=== PATIENT | male | born 1935 | race Caucasian/White ===

== ENCOUNTER → 2019-05-29 | Outpatient (CLI) | payer OTHER ==
[~2019-05-29] MED LIST: ALLOPURINOL100 MG; AMLODIPINE BESYL5 MG PO; ATENOLOL50 MG; DIGOXIN0.25 MG; FELODIPINE; IRON65 M1; LISINOPRIL20 MG; LOSARTAN POTAS100 M1; SIMVASTATIN10 MG; SIMVASTATIN40 MG PO; WARFARIN; WARFARIN SODIUM5 MG PO; WARFARIN2 MG PO
[2019-05-29 11:25] LABS: BASO # 0.1 10*3/uL (0.0-0.1); BASO % 0.9 % (0.0-1.0); EOS # 0.2 10*3/uL (0.0-0.4); HEMATOCRIT 44.1 % (42.0-52.0); HEMOGLOBIN 13.2 g/dl (14.0-18.0); LYMPH # 0.7 10*3/uL (1.3-4.4); LYMPH % 8.6 % (27.0-41.0); MEAN CELL VOLUME 81.5 fl (80.0-94.0); MEAN CORPUSCULAR HGB 24.4 pg (27.0-31.0); MEAN CORPUSCULAR HGB CONC 29.9 g/dl (33.0-37.0); MEAN PLATELET VOLUME 9.6 fl (9.6-12.3); MONO # 0.7 10*3/uL (0.1-1.0); MONO % 8.4 % (3.0-9.0); NEUT # 6.2 10*3/uL (2.3-7.9); NEUT % 78.5 % (47.0-73.0); PLATELET COUNT AUTOMATED 295 10*3/uL (130-400); RED BLOOD COUNT 5.41 10*6/uL (4.50-5.90); RED CELL DISTRI WIDTH 16.3 % (0-14.5); WHITE BLOOD COUNT 7.9 10*3/uL (4.8-10.8)
== END | disposition home or self-care (01) ==
LOC: LAB 09:48 → NM 10:00
PROVIDERS: Orthopaedic Surgery
DX: M25.552 Pain in left hip (principal); M65.852 Other synovitis and tenosynovitis, left thigh; Z96.642 Presence of left artificial hip joint; Z96.643 Presence of artificial hip joint, bilateral

== ENCOUNTER 2019-06-22 14:22 | Emergency (ER) | payer OTHER ==
[~2019-06-22] VITALS: Ht 177.8 cm; Wt 93.0 kg
[2019-06-22 14:24] VITALS: BP 164/74
[2019-06-22 14:39] LABS: BASO # 0.1 10*3/uL (0.0-0.1); BASO % 0.7 % (0.0-1.0); EOS # 0.2 10*3/uL (0.0-0.4); EOS % 2.1 % (1.0-4.0); HEMATOCRIT 37.5 % (42.0-52.0); HEMOGLOBIN 11.4 g/dl (14.0-18.0); LYMPH # 0.9 10*3/uL (1.3-4.4); LYMPH % 10.8 % (27.0-41.0); MEAN CELL VOLUME 79.3 fl (80.0-94.0); MEAN CORPUSCULAR HGB 24.1 pg (27.0-31.0); MEAN CORPUSCULAR HGB CONC 30.4 g/dl (33.0-37.0); MEAN PLATELET VOLUME 8.9 fl (9.6-12.3); MONO # 1.1 10*3/uL (0.1-1.0); MONO % 13.1 % (3.0-9.0); NEUT # 6.3 10*3/uL (2.3-7.9); NEUT % 72.5 % (47.0-73.0); PLATELET COUNT AUTOMATED 357 10*3/uL (130-400); RED BLOOD COUNT 4.73 10*6/uL (4.50-5.90); RED CELL DISTRI WIDTH 15.9 % (0-14.5); WHITE BLOOD COUNT 8.6 10*3/uL (4.8-10.8)
[2019-06-22 14:59] LABS: ALBUMIN 2.8 gm/dl (3.1-4.5); ALKALINE PHOSPHATASE 192 U/L (45-117); BUN 18 mg/dl (7-24); CHLORIDE 107 mmol/L (98-107); POTASSIUM 3.5 mmol/L (3.5-5.1); SGOT/AST 24 IU/L (3-35); SGPT/ALT 21 U/L (12-78); SODIUM 141 mmol/L (136-145); TOTAL PROTEIN 6.7 gm/dL (6.4-8.2)
[2019-06-22 15:04] LABS: INTERNATIONAL NORM RATIO 9.3 (2.0-3.5)
== END 2019-06-22 15:40 | disposition home or self-care (01) ==
LOC: ED 14:22
PROVIDERS: Nurse Practitioner Family
DX: R79.1 Abnormal coagulation profile (principal); J06.9 Acute upper respiratory infection, unspecified; H11.32 Conjunctival hemorrhage, left eye; I48.91 Unspecified atrial fibrillation; I25.10 Atherosclerotic heart disease of native coronary artery without angina pectoris; I10 Essential (primary) hypertension; Z95.1 Presence of aortocoronary bypass graft; Z79.899 Other long term (current) drug therapy; Z79.01 Long term (current) use of anticoagulants

== ENCOUNTER → 2019-08-03 | Outpatient (CLI) | payer OTHER ==
[~2019-08-03] MED LIST changes: +ATORVASTATIN CA40 M1 PO; +COREG12.5 M1 PO; +FUROSEMIDE40 MG PO; +POTASSIUM CHLO20 ME3 PO; +PROAIR HFA8.5 GM INH
[2019-08-03 14:19] LABS: ALBUMIN 3.4 gm/dl (3.1-4.5); ALKALINE PHOSPHATASE 214 U/L (45-117); BUN 25 mg/dl (7-24); CHLORIDE 111 mmol/L (98-107); CREATININE 0.99 mg/dL (0.70-1.30); POTASSIUM 4.2 mmol/L (3.5-5.1); SGOT/AST 27 IU/L (3-35); SGPT/ALT 21 U/L (12-78); SODIUM 143 mmol/L (136-145); TOTAL PROTEIN 7.3 gm/dL (6.4-8.2)
[2019-08-03 14:20] LABS: HEMATOCRIT 37.2 % (42.0-52.0); HEMOGLOBIN 11.2 g/dl (14.0-18.0); MEAN CELL VOLUME 80.9 fl (80.0-94.0); MEAN CORPUSCULAR HGB 24.3 pg (27.0-31.0); MEAN CORPUSCULAR HGB CONC 30.1 g/dl (33.0-37.0); MEAN PLATELET VOLUME 10.6 fl (9.6-12.3); RED BLOOD COUNT 4.6 10*6/uL (4.50-5.90); RED CELL DISTRI WIDTH 16.4 % (0-14.5); WHITE BLOOD COUNT 7.1 10*3/uL (4.8-10.8)
== END | disposition home or self-care (01) ==
LOC: LAB 13:02
PROVIDERS: Family Medicine
DX: I51.7 Cardiomegaly (principal); I48.91 Unspecified atrial fibrillation; Z95.1 Presence of aortocoronary bypass graft

== ENCOUNTER 2019-08-04 10:40 | Inpatient (IN) | payer OTHER ==
[2019-08-04] VITALS (8 sets, daily range): BP systolic 121–152; BP diastolic 56–87
[~2019-08-04] VITALS: Ht 177.8 cm; Wt 92.2 kg
[~2019-08-04 10:40] MED LIST changes: -ATORVASTATIN CA40 M1 PO; -COREG12.5 M1 PO; -FUROSEMIDE40 MG PO; -POTASSIUM CHLO20 ME3 PO; -PROAIR HFA8.5 GM INH
[2019-08-04 10:57] LABS: BASO # 0.1 10*3/uL (0.0-0.1); BASO % 1.5 % (0.0-1.0); EOS # 0.2 10*3/uL (0.0-0.4); EOS % 3.3 % (1.0-4.0); HEMATOCRIT 38.8 % (42.0-52.0); HEMOGLOBIN 11.6 g/dl (14.0-18.0); LYMPH # 0.7 10*3/uL (1.3-4.4); LYMPH % 10.1 % (27.0-41.0); MEAN CELL VOLUME 80.2 fl (80.0-94.0); MEAN CORPUSCULAR HGB CONC 29.9 g/dl (33.0-37.0); MEAN PLATELET VOLUME 9.6 fl (9.6-12.3); MONO # 0.6 10*3/uL (0.1-1.0); MONO % 7.9 % (3.0-9.0); NEUT # 5.6 10*3/uL (2.3-7.9); NEUT % 76.9 % (47.0-73.0); PLATELET COUNT AUTOMATED 385 10*3/uL (130-400); RED BLOOD COUNT 4.84 10*6/uL (4.50-5.90); RED CELL DISTRI WIDTH 16.1 % (0-14.5); WHITE BLOOD COUNT 7.3 10*3/uL (4.8-10.8)
[2019-08-04] MEDS ORDERED: ATORVASTATIN CA40 M1 PO (10:57)
[2019-08-04] MEDS ORDERED: FUROSEMIDE40 MG PO (10:57)
[2019-08-04 11:10] LABS: ACT PARTIAL THROMBO TIME 47.4 SECONDS (20.0-32.1)
[2019-08-04 11:14] LABS: ALBUMIN 3.4 gm/dl (3.1-4.5); ALKALINE PHOSPHATASE 216 U/L (45-117); BUN 21 mg/dl (7-24); CHLORIDE 111 mmol/L (98-107); POTASSIUM 3.9 mmol/L (3.5-5.1); SGOT/AST 29 IU/L (3-35); SGPT/ALT 23 U/L (12-78); SODIUM 142 mmol/L (136-145); TOTAL PROTEIN 7.5 gm/dL (6.4-8.2)
[2019-08-04 11:17] LABS: TROPONIN I 0.049 ng/ml (<0.045)
--- NOTE | 2019-08-04 11:17 | NUR ---
NOTIFED BY LAB PT HAS A TROPONIN OF 0.049, DR LIANG NOTIFED.
--- NOTE | 2019-08-04 13:50 | NUR ---
A 83, admitted to , under the services of Dr. ANASTACIO BENDER,CARLIN Lassiter with a diagnosis of CHF. Chief complaint is SOB WORSENING SINCE YESTERDAY. Patient arrived via wheel chair from ER. Monitor applied. Initial assessment completed. Vital signs taken and recorded. DR. ANASTACIO BENDER,CARLIN Lassiter notified of admission to the unit. Orders received. See assessment for past medical history, medications and allergies. Patient and/or family oriented to unit. [facility] visitation policy reviewed. Clothing/patient valuable form completed. LUCIANO HUNTER
--- NOTE | 2019-08-04 14:06 | NUR ---
ATTEMPTED TO CALL DR CHAVES FOR SECOND TROPONIN RESULT. WILL CALL BACK LATER/AWAITING CALL BACK. CONTINUE TO MONITOR THE PT.
--- NOTE | 2019-08-04 16:19 | NUR ---
MESSAGE LEFT FOR DR DOUGLAS ANSWERING SERVICE REGARDING NEW CONSULT.
--- NOTE | 2019-08-04 16:33 | NUR ---
PT RESTING IN BED AT THIS TIME. VOICES NO CONCERNS. NO S/S OF DISTRESS NOTED. RESPS EASY AND NON LABORED. CALL LIGHT WITHIN REACH
--- NOTE | 2019-08-04 16:59 | NUR ---
DR CHAVES INFORMED OF PATIENTS TROPONIN 0.047, NO NEW ORDERS AT THIS TIME.
[2019-08-04] MEDS ORDERED: PROAIR HFA8.5 GM INH (22:29)
--- NOTE | 2019-08-04 22:40 | NUR ---
PT. STARTING TO HAVE A FAINT WHEEZE AND COUGH. PT. TAKES ALBUTEROL PUFFS AT HOME PRN FOR WHEEZING. SEGUN ORDERED.
[2019-08-05] VITALS: BP 128/69
--- NOTE | 2019-08-05 01:58 | NUR ---
24 HR chart check completed.
--- NOTE | 2019-08-05 03:42 | NUR ---
Patient sleeping. Respirations relaxed and easy. Siderails up . [place] on.Call light within reach. DEVON MONZON
[2019-08-05 06:47] LABS: BUN 21 mg/dl (7-24); CHLORIDE 105 mmol/L (98-107); CREATININE 0.82 mg/dL (0.70-1.30); POTASSIUM 3.4 mmol/L (3.5-5.1); SODIUM 141 mmol/L (136-145)
[2019-08-05 06:48] LABS: INTERNATIONAL NORM RATIO 2.9 (2.0-3.5)
[2019-08-05 12:00] VITALS: BP 126/66
[2019-08-05 16:00] VITALS: BP 114/55
[2019-08-05 20:00] VITALS: BP 126/57
[2019-08-06] VITALS: BP 157/77
--- NOTE | 2019-08-06 07:28 | NUR ---
PHYSICAL THERAPY Screen received please consult Physical Therapy if pt has a decline in functional status from baseline, thank you. Kailey Boykin PT
[2019-08-06 07:40] LABS: BUN 19 mg/dl (7-24); CHLORIDE 104 mmol/L (98-107); CREATININE 0.92 mg/dL (0.70-1.30); SODIUM 139 mmol/L (136-145)
--- NOTE | 2019-08-06 07:50 | NUR ---
Nursing screen received and chart reviewed. Patient admitted with CHF and cardiac history. When medically stable, if patient should have a decline in ADL status from baseline, then refer to Occupational Therapy as appropriate. Thank you. Mindy Chaudhry OTr/l
[2019-08-06 07:58] LABS: INTERNATIONAL NORM RATIO 2.6 (2.0-3.5)
[2019-08-06 08:00] VITALS: BP 128/60
--- NOTE | 2019-08-06 11:27 | NUR ---
Fluid Dynamicist in to talk to patient. Patient states lives at HOME with . There are FEW steps in the home. Physician: AANSTACIO Pharmacy: [facility] Home health services: NONE Patient's level of ADLs: INDEPENDENT Patient has working utilities: YES DME: [facility] IF NEEDED Follow-up physician's appointment after d/c: WILL BE MADE BY HOSPITALIST NURSE DIRECTOR ON DISCHARGE Does patient want to access PORTAL?: NO Discharge plan PT LIVES AT HOME WITH HIS AND IS INDEPENDENT IN HIS CARE. DENIES HE WILL HAVE NEEDS ON DISCHARGE WHEN MEDICALLY STABLE. WILL CONTINUE TO FOLLOW. STATES WILL TAKE HIM HOME ON DC.. KWAME ALVAREZ
--- NOTE | 2019-08-06 11:33 | NUR ---
PT. UNAVAILABLE FOR DA, OFF UNIT FOR STRESS TEST.
--- NOTE | 2019-08-06 12:20 | NUR ---
INFORMED CONSENT OBTAINED FOR LEXISCAN NUCLEAR STRESS TEST WITH DR. CHAVES. RESTING EKG ATRIAL FIB WITH A RESTING HR OF 92 WITH BP OF 128/68. [address] DOWNSLOPING IN LEADS II,III,AVF AND V5-V6. LUNGS CLEAR WITH SPO2 OF 96% ON ROOM AIR. PT COMPLETED A 1:00 LEXISCAN PROTOCOL RECEIVING LEXISCAN 0.4 MG IV OVER 10 SECONDS. HAD NO CHEST PAIN OR ANY EKG CHANGES. HAS A RARE PVC. HAD A PEAK HR OF 93 WITH BP OF 112/54. LAST RECOVERY HR OF 98 WITH BP OF 114/50. AWAITING SCANNING IN STABLE CONDITION.
[2019-08-06 16:00] VITALS: BP 125/68
--- NOTE | 2019-08-06 18:48 | NUR ---
NEW IV STARTED IN RIGHT UPPER ARM 22 ROMAN ON FIRST ATTEMPT, PT TOLERATED WELL
--- NOTE | 2019-08-06 19:59 | NUR ---
ATTEMPTED TO CALL DR CHAVES REGARDING PATIENT REQUESTING PAIN MEDICATION. NO ANSWER
[2019-08-06 20:00] VITALS: BP 122/47
--- NOTE | 2019-08-06 20:38 | NUR ---
MEDICATED WITH PRN TYLENOL FOR C/O BILATERAL SHOULDER PAIN RATED 7/10 ON A 0/10 PAIN SCALE. WILL MONITOR
[2019-08-07] VITALS: BP 123/72
--- NOTE | 2019-08-07 03:37 | NUR ---
24 HR chart check completed.
--- NOTE | 2019-08-07 04:15 | NUR ---
PATIENT RESTING IN BED WITH NO COMPLAINTS. BED IN LOWEST POSITION, CALL LIGHT IN REACH
[2019-08-07 07:52] LABS: BUN 18 mg/dl (7-24); CHLORIDE 102 mmol/L (98-107); CREATININE 0.76 mg/dL (0.70-1.30); INTERNATIONAL NORM RATIO 2.7 (2.0-3.5); POTASSIUM 3.3 mmol/L (3.5-5.1); SODIUM 138 mmol/L (136-145)
[2019-08-07 08:00] VITALS: BP 118/56
--- NOTE | 2019-08-07 09:12 | NUR ---
PATIENT MEDICATED WITH TYLENOL FOR COMPLAINTS OF BACK PAIN AT THIS TIME 11/19. WILL MONITOR FOR EFFECTIVENESS.
[2019-08-07] MEDS ORDERED: FUROSEMIDE40 MG PO (09:43)
[2019-08-07] MEDS ORDERED: COREG12.5 M1 PO (09:43)
[2019-08-07] MEDS ORDERED: POTASSIUM CHLO20 ME3 PO (09:52)
--- NOTE | 2019-08-07 10:30 | NUR ---
PER PATIENT, PRN MEDICATION HAS BEEN EFFECTIVE.
--- NOTE | 2019-08-07 10:30 | NUR ---
Occupational Therapy evaluation completed on 4 with full eval to follow. Precautions include fall risk;unsteady with cane instanding,patient is able to perform self care w/ supervision and set up and will provide as prior to admission.Patient declines home health therapy and "will consider" outpatient PT upon d/c. OT recommended outpatient PT to outsole caser who contacted for outpatient script. Discharge to home w/ assist. Recommended patient use ww v.s. cane in the home. Patient only agreeable to PT at this time. Thank you. Mindy Chaudhry OTr/L
--- NOTE | 2019-08-07 11:20 | NUR ---
Discharge instructions reviewed with patient/family. Patient receptive and verbalizes understanding. Follow-up care arranged. Written instructions given to patient/family. HEPLOCK DISCONTINUED. MONONITROTOLUENE OPERATOR REMOVED. PATIENT AMBULATORY OFF FLOOR WITH MONISHA JORDAN . DANA GOMEZ
--- NOTE | 2019-08-07 11:37 | NUR ---
PHYSICAL THERAPY Thee completed moderate complexity level [id number] Would benefit from [facility] rehab, pt and state they will go home. Discussed Home Health vs Out-patient therapy. Pt/ state they will "consider out-patient therapy" PT to work on transfers,balance,amb with AD, stairs and safety. Kailey Boykin PT
--- NOTE | 2019-08-07 11:53 | NUR ---
SCRIP FOR OUT PT PHYSICAL THERAPY OBTAINED FROM DR CHAVES AND GIVEN TO PT PRIOR TO DISCHARGE. PT STATES HE IS NOT SURE WHERE HE WILL GO FOR PT IS GOING TO CHECK TO SEE WHO HIS INSURANCE COVERS AND WILL SET IT UP.
== END 2019-08-07 11:20 | disposition home or self-care (01) | DRG 190 ==
LOC: ED 10:40 → 4E 13:19 → EDHOLD 13:19 → 4E 13:34
PROVIDERS: Emergency Medicine; ADMIT Internal Medicine
PROC: 3E073KZ Introduction of Other Diagnostic Substance into Coronary Artery, Percutaneous Approach (ICD-10-PCS; principal; 2019-08-06)
PROC: 4A02XM4 Measurement of Cardiac Total Activity, External Approach (ICD-10-PCS; principal; 2019-08-06)
DX: J44.1 Chronic obstructive pulmonary disease with (acute) exacerbation (principal); I50.43 Acute on chronic combined systolic (congestive) and diastolic (congestive) heart failure; I48.21 Permanent atrial fibrillation; J45.21 Mild intermittent asthma with (acute) exacerbation; I11.0 Hypertensive heart disease with heart failure; I25.10 Atherosclerotic heart disease of native coronary artery without angina pectoris; I25.5 Ischemic cardiomyopathy; M1A.9XX0 Chronic gout, unspecified, without tophus (tophi); Z96.642 Presence of left artificial hip joint; E78.2 Mixed hyperlipidemia; R79.89 Other specified abnormal findings of blood chemistry; E87.6 Hypokalemia; T50.2X5A Adverse effect of carbonic-anhydrase inhibitors, benzothiadiazides and other diuretics, initial encounter; Y92.89 Other specified places as the place of occurrence of the external cause; Z87.442 Personal history of urinary calculi; Z82.49 Family history of ischemic heart disease and other diseases of the circulatory system; Z82.5 Family history of asthma and other chronic lower respiratory diseases; Z95.1 Presence of aortocoronary bypass graft

== ENCOUNTER → 2019-08-18 | Outpatient (CLI) | payer MEDICARE ==
[~2019-08-18] MED LIST changes: +ATORVASTATIN CA40 M1 PO; +COREG12.5 M1 PO; +FUROSEMIDE40 MG PO; +POTASSIUM CHLO20 ME3 PO; +PROAIR HFA8.5 GM INH
== END | disposition home or self-care (01) ==
LOC: RAD 14:43
DX: J90 Pleural effusion, not elsewhere classified (principal); R06.02 Shortness of breath; I50.9 Heart failure, unspecified; R05 Cough

== ENCOUNTER → 2019-10-09 | Outpatient (CLI) | payer MEDICARE | END | disposition home or self-care (01) | LOC: RESCLI 00:33 | DX: I11.0 Hypertensive heart disease with heart failure (principal); I50.9 Heart failure, unspecified; I48.91 Unspecified atrial fibrillation; J30.2 Other seasonal allergic rhinitis; M10.9 Gout, unspecified; E53.8 Deficiency of other specified B group vitamins; Z79.899 Other long term (current) drug therapy ==

== ENCOUNTER 2020-03-18 13:32 | Inpatient (IN) | payer MEDICARE ==
[~2020-03-18] VITALS: Ht 177.8 cm; Wt 93.4 kg
[~2020-03-18 13:32] MED LIST changes: -ALLOPURINOL100 MG; +ALLOPURINOL100 MG PO; -LOSARTAN POTAS100 M1; +LOSARTAN POTAS100 M1 PO
[2020-03-18 13:37] VITALS: BP 151/88
[2020-03-18 13:55] LABS: BASO # 0.1 10*3/uL (0.0-0.1); BASO % 1.2 % (0.0-1.0); EOS # 0.3 10*3/uL (0.0-0.4); EOS % 3.4 % (1.0-4.0); HEMATOCRIT 39.8 % (42.0-52.0); LYMPH # 1.2 10*3/uL (1.3-4.4); LYMPH % 16.1 % (27.0-41.0); MEAN CELL VOLUME 79.3 fl (80.0-94.0); MEAN CORPUSCULAR HGB 22.5 pg (27.0-31.0); MEAN CORPUSCULAR HGB CONC 28.4 g/dl (33.0-37.0); MEAN PLATELET VOLUME 10.4 fl (9.6-12.3); MONO # 0.9 10*3/uL (0.1-1.0); MONO % 12.7 % (3.0-9.0); NEUT # 4.8 10*3/uL (2.3-7.9); NEUT % 66.2 % (47.0-73.0); PLATELET COUNT AUTOMATED 383 10*3/uL (130-400); RED BLOOD COUNT 5.02 10*6/uL (4.50-5.90); WHITE BLOOD COUNT 7.3 10*3/uL (4.8-10.8)
[2020-03-18 14:04] LABS: INTERNATIONAL NORM RATIO 1.8 (2.0-3.5)
[2020-03-18 14:13] LABS: ALBUMIN 3.3 gm/dl (3.1-4.5); ALKALINE PHOSPHATASE 172 U/L (45-117); BUN 23 mg/dl (7-24); CHLORIDE 111 mmol/L (98-107); CREATININE 1.05 mg/dL (0.70-1.30); POTASSIUM 4.3 mmol/L (3.5-5.1); SGOT/AST 18 IU/L (3-35); SGPT/ALT 19 U/L (12-78); SODIUM 142 mmol/L (136-145); TOTAL PROTEIN 6.6 gm/dL (6.4-8.2)
[2020-03-18 14:15] LABS: TROPONIN I 0.103 ng/ml (<0.045)
[2020-03-18] MEDS ORDERED: IMDUR SA30 MG PO (17:15)
[2020-03-18] MEDS ORDERED: PROSCAR5 M1 PO (17:15)
[2020-03-18 17:59] VITALS: BP 150/86
[2020-03-18] MEDS ORDERED: XARELTO20 M1 PO (18:43)
[2020-03-18] MEDS ORDERED: VITAMIN B-125000 MC2 PO (18:48)
[2020-03-18 20:00] VITALS: BP 136/82
[2020-03-19] VITALS: BP 121/80
[2020-03-19 06:34] LABS: BUN 21 mg/dl (7-24); CHLORIDE 108 mmol/L (98-107); CREATININE 0.91 mg/dL (0.70-1.30); POTASSIUM 3.5 mmol/L (3.5-5.1); SODIUM 141 mmol/L (136-145)
[2020-03-19 12:00] VITALS: BP 104/70
[2020-03-19 16:00] VITALS: BP 122/82
[2020-03-19 20:00] VITALS: BP 104/70
[2020-03-20] VITALS: BP 103/66
[2020-03-20 08:00] VITALS: BP 108/66
[2020-03-20 12:00] VITALS: BP 103/56
[2020-03-20 16:00] VITALS: BP 104/56
[2020-03-20 20:00] VITALS: BP 113/65
[2020-03-21] VITALS: BP 110/63
[2020-03-21 08:00] VITALS: BP 112/68
[2020-03-21 12:00] VITALS: BP 98/64
[2020-03-21 12:06] LABS: BUN 20 mg/dl (7-24); CHLORIDE 104 mmol/L (98-107); CREATININE 0.95 mg/dL (0.70-1.30); POTASSIUM 3.7 mmol/L (3.5-5.1); SODIUM 135 mmol/L (136-145)
[2020-03-21 16:00] VITALS: BP 105/80
[2020-03-21 20:00] VITALS: BP 121/66
[2020-03-22] VITALS: BP 117/66
[2020-03-22 08:00] VITALS: BP 128/68
[2020-03-22 08:14] LABS: BUN 17 mg/dl (7-24); CHLORIDE 102 mmol/L (98-107); CREATININE 0.89 mg/dL (0.70-1.30); POTASSIUM 3.4 mmol/L (3.5-5.1); SODIUM 139 mmol/L (136-145)
[2020-03-22 12:00] VITALS: BP 95/53
[2020-03-22 16:00] VITALS: BP 103/54
[2020-03-22 20:00] VITALS: BP 101/59
[2020-03-23] VITALS: BP 126/70
[2020-03-23] MEDS ORDERED: TAMSULOSIN HCL0.4 MG PO (10:11)
== END 2020-03-23 11:14 | disposition home or self-care (01) | DRG 292 ==
LOC: ED 13:32 → EDHOLD 16:54 → 4E 16:54
PROVIDERS: Internal Medicine; Student in an Organized Health Care Education/Training Program; ADMIT Internal Medicine
PROC: 0HBRXZZ Excision of Toe Nail, External Approach (ICD-10-PCS; principal; 2020-03-22)
DX: I11.0 Hypertensive heart disease with heart failure (principal); I24.8 Other forms of acute ischemic heart disease; I48.21 Permanent atrial fibrillation; I47.2 Ventricular tachycardia; E87.1 Hypo-osmolality and hyponatremia; R18.8 Other ascites; I50.43 Acute on chronic combined systolic (congestive) and diastolic (congestive) heart failure; K74.60 Unspecified cirrhosis of liver; R62.7 Adult failure to thrive; E66.9 Obesity, unspecified; M1A.9XX0 Chronic gout, unspecified, without tophus (tophi); E87.6 Hypokalemia; I25.10 Atherosclerotic heart disease of native coronary artery without angina pectoris; E78.2 Mixed hyperlipidemia; J44.9 Chronic obstructive pulmonary disease, unspecified; N40.1 Benign prostatic hyperplasia with lower urinary tract symptoms; R33.8 Other retention of urine; B35.1 Tinea unguium; G60.9 Hereditary and idiopathic neuropathy, unspecified; I73.9 Peripheral vascular disease, unspecified; I87.2 Venous insufficiency (chronic) (peripheral); M21.42 Flat foot [pes planus] (acquired), left foot; M21.41 Flat foot [pes planus] (acquired), right foot; Z68.31 Body mass index [BMI] 31.0-31.9, adult; Z95.1 Presence of aortocoronary bypass graft; Z87.442 Personal history of urinary calculi; Z79.01 Long term (current) use of anticoagulants; Z79.899 Other long term (current) drug therapy

== ENCOUNTER → 2020-04-08 | Outpatient (CLI) | payer MEDICARE ==
[~2020-04-08] MED LIST changes: +IMDUR SA30 MG PO; +PROSCAR5 M1 PO; +TAMSULOSIN HCL0.4 MG PO; +VITAMIN B-125000 MC2 PO; +XARELTO20 M1 PO
== END | disposition home or self-care (01) ==
LOC: RAD 03-31 08:00 → US 07:30 → RAD 09:00
PROVIDERS: ATTEND Family Medicine
DX: K80.20 Calculus of gallbladder without cholecystitis without obstruction (principal); K22.8 Other specified diseases of esophagus; K74.60 Unspecified cirrhosis of liver

== ENCOUNTER → 2020-04-25 | Outpatient (CLI) | payer MEDICARE ==
[2020-04-25 19:08] LABS: BUN 40 mg/dl (7-24); CHLORIDE 106 mmol/L (98-107); CREATININE 1.18 mg/dL (0.70-1.30); POTASSIUM 4.4 mmol/L (3.5-5.1); SODIUM 140 mmol/L (136-145)
== END | disposition home or self-care (01) ==
LOC: LAB 16:26
PROVIDERS: ATTEND Student in an Organized Health Care Education/Training Program
DX: I25.5 Ischemic cardiomyopathy (principal)

== ENCOUNTER → 2020-05-18 | Outpatient (CLI) | payer MEDICARE | END | disposition home or self-care (01) | LOC: RESCLI 01:09 | PROVIDERS: ATTEND Internal Medicine | DX: I11.0 Hypertensive heart disease with heart failure (principal); I50.42 Chronic combined systolic (congestive) and diastolic (congestive) heart failure; I48.91 Unspecified atrial fibrillation; E78.5 Hyperlipidemia, unspecified; M1A.09X0 Idiopathic chronic gout, multiple sites, without tophus (tophi); J44.9 Chronic obstructive pulmonary disease, unspecified; J45.20 Mild intermittent asthma, uncomplicated; I25.119 Atherosclerotic heart disease of native coronary artery with unspecified angina pectoris; K74.60 Unspecified cirrhosis of liver; Z79.899 Other long term (current) drug therapy; Z95.1 Presence of aortocoronary bypass graft; Z98.890 Other specified postprocedural states ==

== ENCOUNTER → 2020-06-28 | Outpatient (CLI) | payer MEDICARE ==
[~2020-06-28] MED LIST changes: +ALDACTONE25 MG PO; +INDOMETHACIN50 MG PO; +METOPROLOL SUCC50 M1 PO; +TORSEMIDE10 MG PO; +Zaroxolyn,Diul2.5 MG PO
[2020-06-28 16:00] LABS: BUN 27 mg/dl (7-24); CHLORIDE 109 mmol/L (98-107); CREATININE 1.06 mg/dL (0.70-1.30); POTASSIUM 4.2 mmol/L (3.5-5.1); SODIUM 141 mmol/L (136-145)
== END | disposition home or self-care (01) ==
LOC: LAB 15:10
PROVIDERS: ATTEND Student in an Organized Health Care Education/Training Program
DX: I10 Essential (primary) hypertension (principal)

== ENCOUNTER → 2020-07-01 | Outpatient (CLI) | payer MEDICARE | END | disposition home or self-care (01) | LOC: CARD 01:22 | PROVIDERS: ATTEND Student in an Organized Health Care Education/Training Program | DX: I48.91 Unspecified atrial fibrillation (principal) ==

== ENCOUNTER → 2020-08-09 | Outpatient (CLI) | payer MEDICARE ==
[2020-08-09 16:27] LABS: BUN 41 mg/dl (7-24); CHLORIDE 110 mmol/L (98-107); CREATININE 1.13 mg/dL (0.70-1.30); POTASSIUM 4.6 mmol/L (3.5-5.1); SODIUM 143 mmol/L (136-145)
== END | disposition home or self-care (01) ==
LOC: LAB 15:49
PROVIDERS: ATTEND Student in an Organized Health Care Education/Training Program
DX: I25.5 Ischemic cardiomyopathy (principal)

== ENCOUNTER 2020-08-10 11:13 | Inpatient (IN) | payer MEDICARE ==
[~2020-08-10] VITALS: Ht 177.8 cm; Wt 91.2 kg
[~2020-08-10 11:13] MED LIST changes: -ALDACTONE25 MG PO; -INDOMETHACIN50 MG PO; -METOPROLOL SUCC50 M1 PO; -TORSEMIDE10 MG PO; -Zaroxolyn,Diul2.5 MG PO
[2020-08-10 11:31] VITALS: BP 123/60
[2020-08-10 11:42] LABS: BASO # 0.1 10*3/uL (0.0-0.1); BASO % 0.8 % (0.0-1.0); EOS # 0.2 10*3/uL (0.0-0.4); EOS % 2.3 % (1.0-4.0); HEMATOCRIT 30.7 % (42.0-52.0); LYMPH # 0.8 10*3/uL (1.3-4.4); LYMPH % 11.3 % (27.0-41.0); MEAN CELL VOLUME 72.1 fl (80.0-94.0); MEAN CORPUSCULAR HGB CONC 26.4 g/dl (33.0-37.0); MEAN PLATELET VOLUME 10.1 fl (9.6-12.3); MONO % 13.6 % (3.0-9.0); NEUT # 5.2 10*3/uL (2.3-7.9); NEUT % 71.6 % (47.0-73.0); PLATELET COUNT AUTOMATED 288 10*3/uL (130-400); RED BLOOD COUNT 4.26 10*6/uL (4.50-5.90); RED CELL DISTRI WIDTH 19.8 % (0-14.5); WHITE BLOOD COUNT 7.3 10*3/uL (4.8-10.8)
[2020-08-10 11:59] LABS: ALBUMIN 3.2 gm/dl (3.1-4.5); ALKALINE PHOSPHATASE 136 U/L (45-117); BUN 41 mg/dl (7-24); CHLORIDE 111 mmol/L (98-107); CREATININE 1.15 mg/dL (0.70-1.30); POTASSIUM 4.2 mmol/L (3.5-5.1); SGOT/AST 20 IU/L (3-35); SGPT/ALT 17 U/L (12-78); SODIUM 140 mmol/L (136-145); TOTAL PROTEIN 6.6 gm/dL (6.4-8.2)
[2020-08-10 12:00] LABS: ACT PARTIAL THROMBO TIME 34.9 SECONDS (20.0-32.1); INTERNATIONAL NORM RATIO 1.4 (2.0-3.5)
[2020-08-10 12:04] LABS: TROPONIN I 0.058 ng/ml (<0.045)
[2020-08-10 12:53] VITALS: BP 117/61
[2020-08-10 13:39] VITALS: BP 125/65
[2020-08-10 14:55] VITALS: BP 137/73
[2020-08-10] MEDS ORDERED: METOPROLOL SUCC50 M1 PO (17:46)
[2020-08-10] MEDS ORDERED: Zaroxolyn,Diul2.5 MG PO (17:47)
[2020-08-10] MEDS ORDERED: INDOMETHACIN50 MG PO (17:48)
[2020-08-10] MEDS ORDERED: TORSEMIDE10 MG PO (17:48)
[2020-08-10] MEDS ORDERED: ALDACTONE25 MG PO (17:50)
[2020-08-10 18:45] VITALS: BP 134/66
[2020-08-10 20:00] VITALS: BP 120/52
[2020-08-11] VITALS: BP 102/58
[2020-08-11 07:23] LABS: BASO # 0.1 10*3/uL (0.0-0.1); BASO % 1.2 % (0.0-1.0); EOS # 0.4 10*3/uL (0.0-0.4); EOS % 8.6 % (1.0-4.0); HEMATOCRIT 29.3 % (42.0-52.0); LYMPH # 0.7 10*3/uL (1.3-4.4); LYMPH % 14.3 % (27.0-41.0); MEAN CELL VOLUME 71.5 fl (80.0-94.0); MEAN CORPUSCULAR HGB CONC 26.6 g/dl (33.0-37.0); MONO # 0.6 10*3/uL (0.1-1.0); MONO % 12.9 % (3.0-9.0); NEUT # 3.1 10*3/uL (2.3-7.9); NEUT % 62.6 % (47.0-73.0); NUCLEATED RED BLOOD CELL 0.4 % (0.0-0.0); PLATELET COUNT AUTOMATED 255 10*3/uL (130-400); RED CELL DISTRI WIDTH 19.7 % (0-14.5); WHITE BLOOD COUNT 4.9 10*3/uL (4.8-10.8)
[2020-08-11 07:48] LABS: BUN 42 mg/dl (7-24); CHLORIDE 106 mmol/L (98-107); CREATININE 1.05 mg/dL (0.70-1.30); POTASSIUM 3.7 mmol/L (3.5-5.1); SODIUM 142 mmol/L (136-145)
[2020-08-11 08:00] VITALS: BP 105/73
== END 2020-08-11 11:20 | disposition left against medical advice (07) | DRG 204 ==
LOC: ED 11:13 → EDHOLD 15:08 → 5E 15:08
PROVIDERS: Emergency Medicine; ADMIT Internal Medicine; ATTEND Internal Medicine
DX: R06.00 Dyspnea, unspecified (principal); I48.20 Chronic atrial fibrillation, unspecified; Z53.29 Procedure and treatment not carried out because of patient's decision for other reasons; I25.10 Atherosclerotic heart disease of native coronary artery without angina pectoris; Z95.5 Presence of coronary angioplasty implant and graft; Z95.1 Presence of aortocoronary bypass graft; I50.9 Heart failure, unspecified

== ENCOUNTER → 2020-08-23 | Outpatient (CLI) | payer MEDICARE ==
[~2020-08-23] MED LIST changes: +ALDACTONE25 MG PO; +INDOMETHACIN50 MG PO; +METOPROLOL SUCC50 M1 PO; +TORSEMIDE10 MG PO; +Zaroxolyn,Diul2.5 MG PO
== END | disposition home or self-care (01) ==
LOC: CARD 12:48
PROVIDERS: ATTEND Internal Medicine Cardiovascular Disease
DX: I34.0 Nonrheumatic mitral (valve) insufficiency (principal); I50.23 Acute on chronic systolic (congestive) heart failure; I48.21 Permanent atrial fibrillation; I27.20 Pulmonary hypertension, unspecified; I38 Endocarditis, valve unspecified

== ENCOUNTER → 2020-09-14 | Outpatient (CLI) | payer MEDICARE | END | disposition home or self-care (01) | LOC: RAD 11:24 | PROVIDERS: ATTEND Family Medicine | DX: J90 Pleural effusion, not elsewhere classified (principal); I51.7 Cardiomegaly; I50.9 Heart failure, unspecified ==

== ENCOUNTER → 2020-11-11 | Outpatient (CLI) | payer MEDICARE | END | disposition home or self-care (01) | LOC: RESCLI 00:47 | PROVIDERS: ATTEND Psychiatry & Neurology Neurology | DX: I48.20 Chronic atrial fibrillation, unspecified (principal); J45.20 Mild intermittent asthma, uncomplicated; E78.5 Hyperlipidemia, unspecified; I11.0 Hypertensive heart disease with heart failure; I50.42 Chronic combined systolic (congestive) and diastolic (congestive) heart failure; J44.9 Chronic obstructive pulmonary disease, unspecified; J30.2 Other seasonal allergic rhinitis; I25.119 Atherosclerotic heart disease of native coronary artery with unspecified angina pectoris; K74.60 Unspecified cirrhosis of liver; M10.9 Gout, unspecified; Z79.899 Other long term (current) drug therapy; Z95.1 Presence of aortocoronary bypass graft; Z98.890 Other specified postprocedural states ==

== ENCOUNTER 2021-05-01 11:27 | Inpatient (IN) | payer MEDICARE ==
[~2021-05-01] VITALS: Ht 177.8 cm; Wt 83.2 kg
[2021-05-01] VITALS (7 sets, daily range): BP systolic 108–130; BP diastolic 61–89
[2021-05-01 13:30] LABS: BASO # 0.1 10*3/uL (0.0-0.1); BASO % 1.2 % (0.0-1.0); EOS # 0.1 10*3/uL (0.0-0.4); EOS % 2.3 % (1.0-4.0); HEMATOCRIT 41.3 % (42.0-52.0); LYMPH # 0.7 10*3/uL (1.3-4.4); LYMPH % 11.3 % (27.0-41.0); MEAN CELL VOLUME 76.5 fl (80.0-94.0); MEAN CORPUSCULAR HGB 21.5 pg (27.0-31.0); MEAN CORPUSCULAR HGB CONC 28.1 g/dl (33.0-37.0); MONO # 0.6 10*3/uL (0.1-1.0); MONO % 10.1 % (3.0-9.0); NEUT # 4.5 10*3/uL (2.3-7.9); NEUT % 74.6 % (47.0-73.0); PLATELET COUNT AUTOMATED 276 10*3/uL (130-400)
[2021-05-01 13:47] LABS: ALBUMIN 3.4 gm/dl (3.1-4.5); ALKALINE PHOSPHATASE 154 U/L (45-117); BUN 28 mg/dl (7-24); CHLORIDE 105 mmol/L (98-107); CREATININE 1.04 mg/dL (0.70-1.30); POTASSIUM 4.1 mmol/L (3.5-5.1); SGOT/AST 21 IU/L (3-35); SGPT/ALT 24 U/L (12-78); SODIUM 139 mmol/L (136-145); TOTAL PROTEIN 6.5 gm/dL (6.4-8.2)
[2021-05-01 13:48] LABS: TROPONIN I 0.044 ng/ml (<0.045)
[2021-05-02 00:02] VITALS: BP 116/64
[2021-05-02 04:32] VITALS: BP 121/76
[2021-05-02 05:58] VITALS: BP 121/76
[2021-05-02 06:31] LABS: BASO # 0.1 10*3/uL (0.0-0.1); BASO % 1.4 % (0.0-1.0); EOS # 0.3 10*3/uL (0.0-0.4); EOS % 7.3 % (1.0-4.0); HEMATOCRIT 37.1 % (42.0-52.0); LYMPH # 0.7 10*3/uL (1.3-4.4); LYMPH % 16.4 % (27.0-41.0); MEAN CELL VOLUME 77.8 fl (80.0-94.0); MEAN CORPUSCULAR HGB 21.8 pg (27.0-31.0); MEAN PLATELET VOLUME 10.5 fl (9.6-12.3); MONO # 0.5 10*3/uL (0.1-1.0); MONO % 12.3 % (3.0-9.0); NEUT # 2.7 10*3/uL (2.3-7.9); NEUT % 62.4 % (47.0-73.0); PLATELET COUNT AUTOMATED 212 10*3/uL (130-400); RED BLOOD COUNT 4.77 10*6/uL (4.50-5.90); RED CELL DISTRI WIDTH 20.8 % (0-14.5); WHITE BLOOD COUNT 4.4 10*3/uL (4.8-10.8)
[2021-05-02 06:42] LABS: CHLORIDE 105 mmol/L (98-107); POTASSIUM 3.5 mmol/L (3.5-5.1); SODIUM 141 mmol/L (136-145)
[2021-05-02 06:56] LABS: BUN 29 mg/dl (7-24); CREATININE 0.83 mg/dL (0.70-1.30)
[2021-05-02 07:18] VITALS: BP 123/79
[2021-05-02 20:00] VITALS: BP 116/56
[2021-05-03] VITALS: BP 116/82
[2021-05-03 06:07] LABS: BUN 24 mg/dl (7-24); CHLORIDE 104 mmol/L (98-107); CREATININE 0.83 mg/dL (0.70-1.30); POTASSIUM 3.7 mmol/L (3.5-5.1); SODIUM 140 mmol/L (136-145)
[2021-05-03 08:00] VITALS: BP 107/64
[2021-05-03 08:10] VITALS: BP 122/64
[2021-05-03 12:00] VITALS: BP 106/55
[2021-05-03 16:00] VITALS: BP 112/70
[2021-05-03 20:00] VITALS: BP 115/57
[2021-05-04] VITALS: BP 114/79
[2021-05-04 08:00] VITALS: BP 112/68
[2021-05-04 08:13] LABS: BUN 24 mg/dl (7-24); CHLORIDE 101 mmol/L (98-107); POTASSIUM 3.7 mmol/L (3.5-5.1); SODIUM 137 mmol/L (136-145)
[2021-05-04 12:00] VITALS: BP 97/61
[2021-05-04 16:00] VITALS: BP 101/61
[2021-05-04 20:00] VITALS: BP 104/68
[2021-05-05] VITALS: BP 99/65
[2021-05-05 04:00] VITALS: BP 108/86
[2021-05-05 08:00] VITALS: BP 112/60
[2021-05-05 12:00] VITALS: BP 98/70
[2021-05-05 16:00] VITALS: BP 102/79
[2021-05-05 20:00] VITALS: BP 107/65
[2021-05-06] VITALS: BP 88/58
[2021-05-06 04:00] VITALS: BP 92/54
[2021-05-06 08:00] VITALS: BP 92/50
[2021-05-06 12:00] VITALS: BP 104/53
[2021-05-06 16:00] VITALS: BP 92/51
[2021-05-06] MEDS ORDERED: ENTRESTO 24 MG1 EACH PO (18:53)
== END 2021-05-06 19:45 | disposition home or self-care (01) | DRG 292 ==
LOC: ED 11:27 → 4E 14:56 → EDHOLD 14:56 → 4E 05-02 18:34
PROVIDERS: Emergency Medicine; ADMIT Internal Medicine; ATTEND Internal Medicine
DX: I11.0 Hypertensive heart disease with heart failure (principal); I48.21 Permanent atrial fibrillation; L03.90 Cellulitis, unspecified; R18.8 Other ascites; I50.43 Acute on chronic combined systolic (congestive) and diastolic (congestive) heart failure; I25.10 Atherosclerotic heart disease of native coronary artery without angina pectoris; I25.5 Ischemic cardiomyopathy; R62.7 Adult failure to thrive; N40.1 Benign prostatic hyperplasia with lower urinary tract symptoms; R33.8 Other retention of urine; E78.2 Mixed hyperlipidemia; M1A.9XX0 Chronic gout, unspecified, without tophus (tophi); K74.60 Unspecified cirrhosis of liver; J44.9 Chronic obstructive pulmonary disease, unspecified; J45.20 Mild intermittent asthma, uncomplicated; R26.2 Difficulty in walking, not elsewhere classified; Z87.442 Personal history of urinary calculi; Z95.1 Presence of aortocoronary bypass graft

== ENCOUNTER → 2021-06-21 | Outpatient (CLI) | payer MEDICARE ==
[~2021-06-21] MED LIST changes: +ENTRESTO 24 MG1 EACH PO
== END ==
LOC: WOUNDCARE 00:42
PROVIDERS: ATTEND Nurse Practitioner Family
DX: L97.821 Non-pressure chronic ulcer of other part of left lower leg limited to breakdown of skin (principal); I25.10 Atherosclerotic heart disease of native coronary artery without angina pectoris; I48.20 Chronic atrial fibrillation, unspecified; I50.9 Heart failure, unspecified; G47.33 Obstructive sleep apnea (adult) (pediatric); Z96.643 Presence of artificial hip joint, bilateral; Z96.653 Presence of artificial knee joint, bilateral

== ENCOUNTER → 2021-06-26 | Outpatient (CLI) | payer MEDICARE | LOC: WOUNDCARE 01:35 | PROVIDERS: ATTEND Nurse Practitioner Family | DX: L97.821 Non-pressure chronic ulcer of other part of left lower leg limited to breakdown of skin (principal); I87.8 Other specified disorders of veins; I25.10 Atherosclerotic heart disease of native coronary artery without angina pectoris; I48.20 Chronic atrial fibrillation, unspecified; I50.9 Heart failure, unspecified; G47.33 Obstructive sleep apnea (adult) (pediatric); Z95.5 Presence of coronary angioplasty implant and graft; Z96.643 Presence of artificial hip joint, bilateral; Z96.653 Presence of artificial knee joint, bilateral ==

== ENCOUNTER → 2021-07-03 | Outpatient (CLI) | payer MEDICARE | LOC: WOUNDCARE 02:32 | PROVIDERS: ATTEND Nurse Practitioner Family | DX: L97.821 Non-pressure chronic ulcer of other part of left lower leg limited to breakdown of skin (principal); I25.10 Atherosclerotic heart disease of native coronary artery without angina pectoris; I48.20 Chronic atrial fibrillation, unspecified; I50.9 Heart failure, unspecified; G47.33 Obstructive sleep apnea (adult) (pediatric); Z95.5 Presence of coronary angioplasty implant and graft; Z96.643 Presence of artificial hip joint, bilateral; Z96.653 Presence of artificial knee joint, bilateral ==

== ENCOUNTER → 2021-07-10 | Outpatient (CLI) | payer MEDICARE | LOC: WOUNDCARE 01:14 | PROVIDERS: ATTEND Nurse Practitioner Family | DX: L97.822 Non-pressure chronic ulcer of other part of left lower leg with fat layer exposed (principal); I48.20 Chronic atrial fibrillation, unspecified; I25.10 Atherosclerotic heart disease of native coronary artery without angina pectoris; G47.33 Obstructive sleep apnea (adult) (pediatric); Z95.5 Presence of coronary angioplasty implant and graft; Z96.643 Presence of artificial hip joint, bilateral; Z96.653 Presence of artificial knee joint, bilateral ==

== ENCOUNTER → 2021-07-17 | Outpatient (CLI) | payer MEDICARE | LOC: WOUNDCARE 05:05 | PROVIDERS: ATTEND Nurse Practitioner Family | DX: L97.822 Non-pressure chronic ulcer of other part of left lower leg with fat layer exposed (principal); I48.20 Chronic atrial fibrillation, unspecified; I25.10 Atherosclerotic heart disease of native coronary artery without angina pectoris; G47.33 Obstructive sleep apnea (adult) (pediatric); Z95.5 Presence of coronary angioplasty implant and graft; Z96.643 Presence of artificial hip joint, bilateral; Z96.653 Presence of artificial knee joint, bilateral ==

== ENCOUNTER → 2021-07-24 | Outpatient (CLI) | payer MEDICARE | LOC: WOUNDCARE 00:39 | PROVIDERS: ATTEND Nurse Practitioner Family | DX: L97.822 Non-pressure chronic ulcer of other part of left lower leg with fat layer exposed (principal); I48.20 Chronic atrial fibrillation, unspecified; I25.10 Atherosclerotic heart disease of native coronary artery without angina pectoris; G47.33 Obstructive sleep apnea (adult) (pediatric); Z95.5 Presence of coronary angioplasty implant and graft; Z96.643 Presence of artificial hip joint, bilateral; Z96.653 Presence of artificial knee joint, bilateral ==

== ENCOUNTER → 2021-08-17 | Outpatient (CLI) | payer MEDICARE | LOC: WOUNDCARE 01:29 | PROVIDERS: ATTEND Nurse Practitioner Family | DX: L97.822 Non-pressure chronic ulcer of other part of left lower leg with fat layer exposed (principal); I87.8 Other specified disorders of veins; I48.20 Chronic atrial fibrillation, unspecified; I50.9 Heart failure, unspecified; I25.10 Atherosclerotic heart disease of native coronary artery without angina pectoris; G47.33 Obstructive sleep apnea (adult) (pediatric); Z95.5 Presence of coronary angioplasty implant and graft; Z96.643 Presence of artificial hip joint, bilateral; Z96.653 Presence of artificial knee joint, bilateral ==

== ENCOUNTER → 2021-08-24 | Outpatient (CLI) | payer MEDICARE | LOC: WOUNDCARE 01:29 | PROVIDERS: ATTEND Nurse Practitioner Family | DX: L97.822 Non-pressure chronic ulcer of other part of left lower leg with fat layer exposed (principal); I87.8 Other specified disorders of veins; I48.20 Chronic atrial fibrillation, unspecified; I50.9 Heart failure, unspecified; I25.10 Atherosclerotic heart disease of native coronary artery without angina pectoris; G47.33 Obstructive sleep apnea (adult) (pediatric); Z95.5 Presence of coronary angioplasty implant and graft; Z96.643 Presence of artificial hip joint, bilateral; Z96.653 Presence of artificial knee joint, bilateral ==

== ENCOUNTER → 2021-09-08 | Outpatient (CLI) | payer MEDICARE | LOC: WOUNDCARE 00:47 | PROVIDERS: ATTEND Nurse Practitioner Family | DX: I83.028 Varicose veins of left lower extremity with ulcer other part of lower leg (principal); L97.822 Non-pressure chronic ulcer of other part of left lower leg with fat layer exposed; I83.022 Varicose veins of left lower extremity with ulcer of calf; L97.222 Non-pressure chronic ulcer of left calf with fat layer exposed; I48.20 Chronic atrial fibrillation, unspecified; I50.9 Heart failure, unspecified; I25.10 Atherosclerotic heart disease of native coronary artery without angina pectoris; G47.33 Obstructive sleep apnea (adult) (pediatric); Z95.5 Presence of coronary angioplasty implant and graft; Z96.643 Presence of artificial hip joint, bilateral; Z96.653 Presence of artificial knee joint, bilateral ==

== ENCOUNTER → 2021-10-12 | Outpatient (CLI) | payer MEDICARE | LOC: WOUNDCARE 02:24 | PROVIDERS: ATTEND Nurse Practitioner Family | DX: I83.028 Varicose veins of left lower extremity with ulcer other part of lower leg (principal); L97.822 Non-pressure chronic ulcer of other part of left lower leg with fat layer exposed; I83.022 Varicose veins of left lower extremity with ulcer of calf; L97.222 Non-pressure chronic ulcer of left calf with fat layer exposed; I48.20 Chronic atrial fibrillation, unspecified; I50.9 Heart failure, unspecified; I25.10 Atherosclerotic heart disease of native coronary artery without angina pectoris; G47.33 Obstructive sleep apnea (adult) (pediatric); Z95.5 Presence of coronary angioplasty implant and graft; Z96.643 Presence of artificial hip joint, bilateral; Z96.653 Presence of artificial knee joint, bilateral ==

== ENCOUNTER → 2021-10-19 | Outpatient (CLI) | payer MEDICARE | LOC: WOUNDCARE 01:28 | PROVIDERS: ATTEND Nurse Practitioner Family | DX: I83.028 Varicose veins of left lower extremity with ulcer other part of lower leg (principal); L97.822 Non-pressure chronic ulcer of other part of left lower leg with fat layer exposed; I83.022 Varicose veins of left lower extremity with ulcer of calf; L97.222 Non-pressure chronic ulcer of left calf with fat layer exposed; I48.20 Chronic atrial fibrillation, unspecified; I50.9 Heart failure, unspecified; I25.10 Atherosclerotic heart disease of native coronary artery without angina pectoris; G47.33 Obstructive sleep apnea (adult) (pediatric); Z95.5 Presence of coronary angioplasty implant and graft; Z96.643 Presence of artificial hip joint, bilateral; Z96.653 Presence of artificial knee joint, bilateral ==

== ENCOUNTER → 2021-10-26 | Outpatient (CLI) | payer MEDICARE | LOC: WOUNDCARE 01:00 | PROVIDERS: ATTEND Nurse Practitioner Family | DX: I83.002 Varicose veins of unspecified lower extremity with ulcer of calf (principal); L97.222 Non-pressure chronic ulcer of left calf with fat layer exposed; G47.33 Obstructive sleep apnea (adult) (pediatric); I48.91 Unspecified atrial fibrillation; I50.9 Heart failure, unspecified; I25.10 Atherosclerotic heart disease of native coronary artery without angina pectoris; Z95.1 Presence of aortocoronary bypass graft; Z96.643 Presence of artificial hip joint, bilateral; Z96.651 Presence of right artificial knee joint ==

== ENCOUNTER → 2021-11-03 | Outpatient (CLI) | payer MEDICARE | END | disposition home or self-care (01) | LOC: WOUNDCARE 01:35 | PROVIDERS: ATTEND Nurse Practitioner Family | DX: I83.002 Varicose veins of unspecified lower extremity with ulcer of calf (principal); L97.222 Non-pressure chronic ulcer of left calf with fat layer exposed; G47.33 Obstructive sleep apnea (adult) (pediatric); I48.91 Unspecified atrial fibrillation; I50.9 Heart failure, unspecified; I25.10 Atherosclerotic heart disease of native coronary artery without angina pectoris; Z95.1 Presence of aortocoronary bypass graft; Z96.651 Presence of right artificial knee joint; Z96.643 Presence of artificial hip joint, bilateral ==

== ENCOUNTER → 2021-11-10 | Outpatient (CLI) | payer MEDICARE | END | disposition home or self-care (01) | LOC: WOUNDCARE 03:56 | PROVIDERS: ATTEND Nurse Practitioner Family | DX: I83.022 Varicose veins of left lower extremity with ulcer of calf (principal); L97.222 Non-pressure chronic ulcer of left calf with fat layer exposed; L89.892 Pressure ulcer of other site, stage 2; G47.33 Obstructive sleep apnea (adult) (pediatric); I48.91 Unspecified atrial fibrillation; I50.9 Heart failure, unspecified; I25.10 Atherosclerotic heart disease of native coronary artery without angina pectoris; Z95.1 Presence of aortocoronary bypass graft; Z96.651 Presence of right artificial knee joint; Z96.643 Presence of artificial hip joint, bilateral ==

== ENCOUNTER → 2021-11-17 | Outpatient (CLI) | payer MEDICARE | END | disposition home or self-care (01) | LOC: WOUNDCARE 01:08 | PROVIDERS: ATTEND Nurse Practitioner Family | DX: I83.022 Varicose veins of left lower extremity with ulcer of calf (principal); L97.222 Non-pressure chronic ulcer of left calf with fat layer exposed; L89.892 Pressure ulcer of other site, stage 2; G47.33 Obstructive sleep apnea (adult) (pediatric); I48.91 Unspecified atrial fibrillation; I50.9 Heart failure, unspecified; I25.10 Atherosclerotic heart disease of native coronary artery without angina pectoris; Z95.1 Presence of aortocoronary bypass graft; Z96.651 Presence of right artificial knee joint; Z96.643 Presence of artificial hip joint, bilateral ==

== ENCOUNTER → 2021-11-22 | Outpatient (CLI) | payer MEDICARE | END | disposition home or self-care (01) | LOC: WOUNDCARE 02:00 | PROVIDERS: ATTEND Nurse Practitioner Family | DX: I83.022 Varicose veins of left lower extremity with ulcer of calf (principal); L97.222 Non-pressure chronic ulcer of left calf with fat layer exposed; L89.892 Pressure ulcer of other site, stage 2; S80.822A Blister (nonthermal), left lower leg, initial encounter; G47.33 Obstructive sleep apnea (adult) (pediatric); I50.9 Heart failure, unspecified; I25.10 Atherosclerotic heart disease of native coronary artery without angina pectoris; I48.91 Unspecified atrial fibrillation; Z95.1 Presence of aortocoronary bypass graft; Z96.643 Presence of artificial hip joint, bilateral; Z96.651 Presence of right artificial knee joint; X58.XXXA Exposure to other specified factors, initial encounter; Y93.89 Activity, other specified; Y92.89 Other specified places as the place of occurrence of the external cause; Y99.8 Other external cause status ==

== ENCOUNTER → 2021-11-29 | Outpatient (CLI) | payer MEDICARE | END | disposition home or self-care (01) | LOC: WOUNDCARE 02:49 | PROVIDERS: ATTEND Nurse Practitioner Family | DX: I83.022 Varicose veins of left lower extremity with ulcer of calf (principal); L97.222 Non-pressure chronic ulcer of left calf with fat layer exposed; L89.892 Pressure ulcer of other site, stage 2; S80.822D Blister (nonthermal), left lower leg, subsequent encounter; G47.33 Obstructive sleep apnea (adult) (pediatric); I50.9 Heart failure, unspecified; I25.10 Atherosclerotic heart disease of native coronary artery without angina pectoris; I48.91 Unspecified atrial fibrillation; Z95.1 Presence of aortocoronary bypass graft; Z96.643 Presence of artificial hip joint, bilateral; Z96.651 Presence of right artificial knee joint; X58.XXXD Exposure to other specified factors, subsequent encounter ==

== ENCOUNTER → 2021-12-08 | Outpatient (CLI) | payer MEDICARE | END | disposition home or self-care (01) | LOC: WOUNDCARE 01:37 | PROVIDERS: ATTEND Nurse Practitioner Family | DX: I83.028 Varicose veins of left lower extremity with ulcer other part of lower leg (principal); L97.822 Non-pressure chronic ulcer of other part of left lower leg with fat layer exposed; I83.022 Varicose veins of left lower extremity with ulcer of calf; L97.222 Non-pressure chronic ulcer of left calf with fat layer exposed; L89.892 Pressure ulcer of other site, stage 2; G47.33 Obstructive sleep apnea (adult) (pediatric); I25.10 Atherosclerotic heart disease of native coronary artery without angina pectoris; I48.91 Unspecified atrial fibrillation; Z95.1 Presence of aortocoronary bypass graft; Z96.643 Presence of artificial hip joint, bilateral; Z96.651 Presence of right artificial knee joint ==

== ENCOUNTER → 2021-12-15 | Outpatient (CLI) | payer MEDICARE | END | disposition home or self-care (01) | LOC: WOUNDCARE 01:11 | PROVIDERS: ATTEND Nurse Practitioner Family | DX: L89.892 Pressure ulcer of other site, stage 2 (principal); I83.022 Varicose veins of left lower extremity with ulcer of calf; L97.222 Non-pressure chronic ulcer of left calf with fat layer exposed; G47.33 Obstructive sleep apnea (adult) (pediatric); I48.91 Unspecified atrial fibrillation; I50.9 Heart failure, unspecified; I25.10 Atherosclerotic heart disease of native coronary artery without angina pectoris; Z95.1 Presence of aortocoronary bypass graft; Z96.651 Presence of right artificial knee joint; Z96.643 Presence of artificial hip joint, bilateral ==

== ENCOUNTER → 2021-12-25 | Outpatient (CLI) | payer MEDICARE | LOC: WOUNDCARE 03:46 | PROVIDERS: ATTEND Nurse Practitioner Family | DX: I83.022 Varicose veins of left lower extremity with ulcer of calf (principal); L97.222 Non-pressure chronic ulcer of left calf with fat layer exposed; I83.028 Varicose veins of left lower extremity with ulcer other part of lower leg; L97.822 Non-pressure chronic ulcer of other part of left lower leg with fat layer exposed; L89.892 Pressure ulcer of other site, stage 2; G47.33 Obstructive sleep apnea (adult) (pediatric); I48.91 Unspecified atrial fibrillation; I25.10 Atherosclerotic heart disease of native coronary artery without angina pectoris; I50.9 Heart failure, unspecified; Z95.1 Presence of aortocoronary bypass graft; Z96.651 Presence of right artificial knee joint; Z96.643 Presence of artificial hip joint, bilateral ==

== ENCOUNTER → 2022-01-04 | Outpatient (CLI) | payer MEDICARE | LOC: WOUNDCARE 01-03 02:06 | PROVIDERS: ATTEND Nurse Practitioner Family | DX: I83.022 Varicose veins of left lower extremity with ulcer of calf (principal); L97.222 Non-pressure chronic ulcer of left calf with fat layer exposed; I83.028 Varicose veins of left lower extremity with ulcer other part of lower leg; L97.822 Non-pressure chronic ulcer of other part of left lower leg with fat layer exposed; L89.892 Pressure ulcer of other site, stage 2; G47.33 Obstructive sleep apnea (adult) (pediatric); I48.91 Unspecified atrial fibrillation; I50.9 Heart failure, unspecified; I25.10 Atherosclerotic heart disease of native coronary artery without angina pectoris; Z95.1 Presence of aortocoronary bypass graft; Z96.651 Presence of right artificial knee joint; Z96.643 Presence of artificial hip joint, bilateral ==

== ENCOUNTER → 2022-01-10 | Outpatient (CLI) | payer MEDICARE | END | disposition home or self-care (01) | LOC: WOUNDCARE 01:51 | PROVIDERS: ATTEND Nurse Practitioner Family | DX: L89.892 Pressure ulcer of other site, stage 2 (principal); I83.028 Varicose veins of left lower extremity with ulcer other part of lower leg; L97.822 Non-pressure chronic ulcer of other part of left lower leg with fat layer exposed; G47.33 Obstructive sleep apnea (adult) (pediatric); I48.91 Unspecified atrial fibrillation; I50.9 Heart failure, unspecified; I25.10 Atherosclerotic heart disease of native coronary artery without angina pectoris; Z96.651 Presence of right artificial knee joint; Z96.643 Presence of artificial hip joint, bilateral; Z95.1 Presence of aortocoronary bypass graft ==

== ENCOUNTER → 2022-01-18 | Outpatient (CLI) | payer MEDICARE | END | disposition home or self-care (01) | LOC: WOUNDCARE 01:52 | PROVIDERS: ATTEND Nurse Practitioner Family | DX: I83.028 Varicose veins of left lower extremity with ulcer other part of lower leg (principal); L97.822 Non-pressure chronic ulcer of other part of left lower leg with fat layer exposed; I83.022 Varicose veins of left lower extremity with ulcer of calf; L97.222 Non-pressure chronic ulcer of left calf with fat layer exposed; L84 Corns and callosities; G47.33 Obstructive sleep apnea (adult) (pediatric); I48.91 Unspecified atrial fibrillation; I50.9 Heart failure, unspecified; I25.10 Atherosclerotic heart disease of native coronary artery without angina pectoris; Z95.1 Presence of aortocoronary bypass graft; Z96.651 Presence of right artificial knee joint; Z96.643 Presence of artificial hip joint, bilateral ==

== ENCOUNTER → 2022-01-25 | Outpatient (CLI) | payer MEDICARE | END | disposition home or self-care (01) | LOC: WOUNDCARE 01:47 | PROVIDERS: ATTEND Nurse Practitioner Family | DX: I83.012 Varicose veins of right lower extremity with ulcer of calf (principal); L97.822 Non-pressure chronic ulcer of other part of left lower leg with fat layer exposed; I48.91 Unspecified atrial fibrillation; I50.9 Heart failure, unspecified; G47.33 Obstructive sleep apnea (adult) (pediatric); I25.10 Atherosclerotic heart disease of native coronary artery without angina pectoris; Z95.1 Presence of aortocoronary bypass graft; Z96.651 Presence of right artificial knee joint; Z96.643 Presence of artificial hip joint, bilateral ==

== ENCOUNTER → 2022-02-01 | Outpatient (CLI) | payer MEDICARE | LOC: WOUNDCARE 03:07 | PROVIDERS: ATTEND Nurse Practitioner Family | DX: I83.022 Varicose veins of left lower extremity with ulcer of calf (principal); L97.822 Non-pressure chronic ulcer of other part of left lower leg with fat layer exposed; G47.33 Obstructive sleep apnea (adult) (pediatric); I25.10 Atherosclerotic heart disease of native coronary artery without angina pectoris; I48.91 Unspecified atrial fibrillation; I50.9 Heart failure, unspecified; Z95.1 Presence of aortocoronary bypass graft; Z96.651 Presence of right artificial knee joint; Z96.643 Presence of artificial hip joint, bilateral ==

== ENCOUNTER → 2022-02-08 | Outpatient (CLI) | payer MEDICARE | END | disposition home or self-care (01) | LOC: WOUNDCARE 01:22 | PROVIDERS: ATTEND Nurse Practitioner Family | DX: I83.022 Varicose veins of left lower extremity with ulcer of calf (principal); L97.222 Non-pressure chronic ulcer of left calf with fat layer exposed; G47.33 Obstructive sleep apnea (adult) (pediatric); I48.91 Unspecified atrial fibrillation; I50.9 Heart failure, unspecified; I25.10 Atherosclerotic heart disease of native coronary artery without angina pectoris; Z95.1 Presence of aortocoronary bypass graft; Z96.651 Presence of right artificial knee joint; Z96.643 Presence of artificial hip joint, bilateral ==

== ENCOUNTER → 2022-06-04 | Outpatient (CLI) | payer MEDICARE | END | disposition home or self-care (01) | LOC: RESCLI 02:03 | PROVIDERS: ATTEND Internal Medicine | DX: I11.0 Hypertensive heart disease with heart failure (principal); I50.42 Chronic combined systolic (congestive) and diastolic (congestive) heart failure; I48.91 Unspecified atrial fibrillation; E78.5 Hyperlipidemia, unspecified; J45.20 Mild intermittent asthma, uncomplicated; E55.9 Vitamin D deficiency, unspecified; J30.2 Other seasonal allergic rhinitis; J44.9 Chronic obstructive pulmonary disease, unspecified; M10.9 Gout, unspecified; Z98.890 Other specified postprocedural states; Z95.1 Presence of aortocoronary bypass graft; Z79.01 Long term (current) use of anticoagulants; Z79.899 Other long term (current) drug therapy ==

== ENCOUNTER → 2022-12-11 | Outpatient (CLI) | payer MEDICARE | END | disposition home or self-care (01) | LOC: LAB 09:10 | PROVIDERS: ATTEND Family Medicine | DX: K52.9 Noninfective gastroenteritis and colitis, unspecified (principal) ==

== ENCOUNTER → 2023-05-13 | Outpatient (CLI) | payer MEDICARE | END | disposition home or self-care (01) | LOC: RESCLI 00:17 | PROVIDERS: ATTEND Internal Medicine | DX: I11.0 Hypertensive heart disease with heart failure (principal); I50.32 Chronic diastolic (congestive) heart failure; E78.5 Hyperlipidemia, unspecified; M10.9 Gout, unspecified; I48.91 Unspecified atrial fibrillation; Z98.890 Other specified postprocedural states; Z79.01 Long term (current) use of anticoagulants; Z79.899 Other long term (current) drug therapy ==

== ENCOUNTER → 2024-04-03 | Outpatient (CLI) | payer MEDICARE | LOC: WOUNDCARE 03:09 | PROVIDERS: ATTEND Nurse Practitioner Family | DX: L97.812 Non-pressure chronic ulcer of other part of right lower leg with fat layer exposed (principal); L97.822 Non-pressure chronic ulcer of other part of left lower leg with fat layer exposed; S81.812A Laceration without foreign body, left lower leg, initial encounter; I13.0 Hypertensive heart and chronic kidney disease with heart failure and stage 1 through stage 4 chronic kidney disease, or unspecified chronic kidney disease; N18.9 Chronic kidney disease, unspecified; I50.9 Heart failure, unspecified; I73.9 Peripheral vascular disease, unspecified; I87.2 Venous insufficiency (chronic) (peripheral); I25.10 Atherosclerotic heart disease of native coronary artery without angina pectoris; I48.91 Unspecified atrial fibrillation; G47.33 Obstructive sleep apnea (adult) (pediatric); Z95.1 Presence of aortocoronary bypass graft; Z96.643 Presence of artificial hip joint, bilateral; Z96.651 Presence of right artificial knee joint; Z79.899 Other long term (current) drug therapy; X58.XXXA Exposure to other specified factors, initial encounter; Y93.89 Activity, other specified; Y92.89 Other specified places as the place of occurrence of the external cause; Y99.8 Other external cause status ==

== ENCOUNTER → 2024-04-10 | Outpatient (CLI) | payer MEDICARE | END | disposition home or self-care (01) | LOC: WOUNDCARE 01:29 | PROVIDERS: ATTEND Nurse Practitioner Family | DX: L97.812 Non-pressure chronic ulcer of other part of right lower leg with fat layer exposed (principal); L97.822 Non-pressure chronic ulcer of other part of left lower leg with fat layer exposed; S81.812D Laceration without foreign body, left lower leg, subsequent encounter; I13.0 Hypertensive heart and chronic kidney disease with heart failure and stage 1 through stage 4 chronic kidney disease, or unspecified chronic kidney disease; N18.9 Chronic kidney disease, unspecified; I50.9 Heart failure, unspecified; I73.9 Peripheral vascular disease, unspecified; I87.2 Venous insufficiency (chronic) (peripheral); I25.10 Atherosclerotic heart disease of native coronary artery without angina pectoris; I48.91 Unspecified atrial fibrillation; G47.33 Obstructive sleep apnea (adult) (pediatric); Z95.1 Presence of aortocoronary bypass graft; Z96.643 Presence of artificial hip joint, bilateral; Z96.651 Presence of right artificial knee joint; Z79.899 Other long term (current) drug therapy; X58.XXXD Exposure to other specified factors, subsequent encounter ==

== ENCOUNTER → 2024-04-17 | Outpatient (CLI) | payer MEDICARE | END | disposition home or self-care (01) | LOC: WOUNDCARE 01:10 | PROVIDERS: ATTEND Nurse Practitioner Family | DX: L97.812 Non-pressure chronic ulcer of other part of right lower leg with fat layer exposed (principal); S81.812D Laceration without foreign body, left lower leg, subsequent encounter; I73.9 Peripheral vascular disease, unspecified; I87.2 Venous insufficiency (chronic) (peripheral); I13.0 Hypertensive heart and chronic kidney disease with heart failure and stage 1 through stage 4 chronic kidney disease, or unspecified chronic kidney disease; N18.9 Chronic kidney disease, unspecified; I50.9 Heart failure, unspecified; I48.91 Unspecified atrial fibrillation; G47.30 Sleep apnea, unspecified; I25.10 Atherosclerotic heart disease of native coronary artery without angina pectoris; Z96.651 Presence of right artificial knee joint; Z95.1 Presence of aortocoronary bypass graft; Z96.643 Presence of artificial hip joint, bilateral; X58.XXXD Exposure to other specified factors, subsequent encounter ==

== ENCOUNTER → 2024-04-24 | Outpatient (CLI) | payer MEDICARE | END | disposition home or self-care (01) | LOC: WOUNDCARE 01:11 | PROVIDERS: ATTEND Nurse Practitioner Family | DX: L97.812 Non-pressure chronic ulcer of other part of right lower leg with fat layer exposed (principal); L97.822 Non-pressure chronic ulcer of other part of left lower leg with fat layer exposed; S81.812D Laceration without foreign body, left lower leg, subsequent encounter; I13.0 Hypertensive heart and chronic kidney disease with heart failure and stage 1 through stage 4 chronic kidney disease, or unspecified chronic kidney disease; N18.9 Chronic kidney disease, unspecified; I50.9 Heart failure, unspecified; I73.9 Peripheral vascular disease, unspecified; I87.2 Venous insufficiency (chronic) (peripheral); I25.10 Atherosclerotic heart disease of native coronary artery without angina pectoris; I48.91 Unspecified atrial fibrillation; G47.33 Obstructive sleep apnea (adult) (pediatric); Z95.1 Presence of aortocoronary bypass graft; Z96.653 Presence of artificial knee joint, bilateral; Z96.651 Presence of right artificial knee joint; Z79.899 Other long term (current) drug therapy; X58.XXXD Exposure to other specified factors, subsequent encounter ==

== ENCOUNTER → 2024-05-01 | Outpatient (CLI) | payer MEDICARE | END | disposition home or self-care (01) | LOC: WOUNDCARE 03:30 | PROVIDERS: ATTEND Nurse Practitioner Family | DX: I83.018 Varicose veins of right lower extremity with ulcer other part of lower leg (principal); L97.812 Non-pressure chronic ulcer of other part of right lower leg with fat layer exposed; I83.028 Varicose veins of left lower extremity with ulcer other part of lower leg; L97.828 Non-pressure chronic ulcer of other part of left lower leg with other specified severity; S81.812D Laceration without foreign body, left lower leg, subsequent encounter; I13.0 Hypertensive heart and chronic kidney disease with heart failure and stage 1 through stage 4 chronic kidney disease, or unspecified chronic kidney disease; N18.9 Chronic kidney disease, unspecified; I50.9 Heart failure, unspecified; I73.9 Peripheral vascular disease, unspecified; I87.2 Venous insufficiency (chronic) (peripheral); I25.10 Atherosclerotic heart disease of native coronary artery without angina pectoris; I48.91 Unspecified atrial fibrillation; G47.33 Obstructive sleep apnea (adult) (pediatric); Z95.1 Presence of aortocoronary bypass graft; Z96.651 Presence of right artificial knee joint; Z96.643 Presence of artificial hip joint, bilateral; Z79.899 Other long term (current) drug therapy; X58.XXXD Exposure to other specified factors, subsequent encounter ==

== ENCOUNTER → 2024-05-08 | Outpatient (CLI) | payer MEDICARE | END | disposition home or self-care (01) | LOC: WOUNDCARE 02:01 | PROVIDERS: ATTEND Nurse Practitioner Family | DX: I83.018 Varicose veins of right lower extremity with ulcer other part of lower leg (principal); L97.812 Non-pressure chronic ulcer of other part of right lower leg with fat layer exposed; I83.892 Varicose veins of left lower extremity with other complications; S81.812D Laceration without foreign body, left lower leg, subsequent encounter; I13.0 Hypertensive heart and chronic kidney disease with heart failure and stage 1 through stage 4 chronic kidney disease, or unspecified chronic kidney disease; N18.9 Chronic kidney disease, unspecified; I50.9 Heart failure, unspecified; I73.9 Peripheral vascular disease, unspecified; I87.2 Venous insufficiency (chronic) (peripheral); I25.10 Atherosclerotic heart disease of native coronary artery without angina pectoris; I48.91 Unspecified atrial fibrillation; G47.33 Obstructive sleep apnea (adult) (pediatric); Z95.1 Presence of aortocoronary bypass graft; Z96.651 Presence of right artificial knee joint; Z96.643 Presence of artificial hip joint, bilateral; Z79.899 Other long term (current) drug therapy; X58.XXXD Exposure to other specified factors, subsequent encounter ==

== ENCOUNTER → 2024-05-15 | Outpatient (CLI) | payer MEDICARE | END | disposition home or self-care (01) | LOC: WOUNDCARE 00:36 | PROVIDERS: ATTEND Nurse Practitioner Family | DX: I83.018 Varicose veins of right lower extremity with ulcer other part of lower leg (principal); L97.812 Non-pressure chronic ulcer of other part of right lower leg with fat layer exposed; I83.892 Varicose veins of left lower extremity with other complications; S81.812D Laceration without foreign body, left lower leg, subsequent encounter; I13.0 Hypertensive heart and chronic kidney disease with heart failure and stage 1 through stage 4 chronic kidney disease, or unspecified chronic kidney disease; N18.9 Chronic kidney disease, unspecified; I50.9 Heart failure, unspecified; I73.9 Peripheral vascular disease, unspecified; I87.2 Venous insufficiency (chronic) (peripheral); I25.10 Atherosclerotic heart disease of native coronary artery without angina pectoris; I48.91 Unspecified atrial fibrillation; G47.33 Obstructive sleep apnea (adult) (pediatric); Z95.1 Presence of aortocoronary bypass graft; Z96.651 Presence of right artificial knee joint; Z96.643 Presence of artificial hip joint, bilateral; Z79.899 Other long term (current) drug therapy; X58.XXXD Exposure to other specified factors, subsequent encounter ==

== ENCOUNTER → 2024-05-22 | Outpatient (CLI) | payer MEDICARE | END | disposition home or self-care (01) | LOC: WOUNDCARE 02:47 | PROVIDERS: ATTEND Nurse Practitioner Family | DX: I83.018 Varicose veins of right lower extremity with ulcer other part of lower leg (principal); L97.812 Non-pressure chronic ulcer of other part of right lower leg with fat layer exposed; I83.892 Varicose veins of left lower extremity with other complications; S81.812D Laceration without foreign body, left lower leg, subsequent encounter; I13.0 Hypertensive heart and chronic kidney disease with heart failure and stage 1 through stage 4 chronic kidney disease, or unspecified chronic kidney disease; N18.9 Chronic kidney disease, unspecified; I50.9 Heart failure, unspecified; I73.9 Peripheral vascular disease, unspecified; I87.8 Other specified disorders of veins; I25.10 Atherosclerotic heart disease of native coronary artery without angina pectoris; I48.91 Unspecified atrial fibrillation; G47.33 Obstructive sleep apnea (adult) (pediatric); Z95.1 Presence of aortocoronary bypass graft; Z96.651 Presence of right artificial knee joint; Z96.643 Presence of artificial hip joint, bilateral; Z79.899 Other long term (current) drug therapy; X58.XXXD Exposure to other specified factors, subsequent encounter ==

== ENCOUNTER → 2024-05-29 | Outpatient (CLI) | payer MEDICARE | END | disposition home or self-care (01) | LOC: WOUNDCARE 03:14 | PROVIDERS: ATTEND Nurse Practitioner Family | DX: I83.018 Varicose veins of right lower extremity with ulcer other part of lower leg (principal); L97.812 Non-pressure chronic ulcer of other part of right lower leg with fat layer exposed; I83.892 Varicose veins of left lower extremity with other complications; S81.812D Laceration without foreign body, left lower leg, subsequent encounter; I13.0 Hypertensive heart and chronic kidney disease with heart failure and stage 1 through stage 4 chronic kidney disease, or unspecified chronic kidney disease; N18.9 Chronic kidney disease, unspecified; I50.9 Heart failure, unspecified; I73.9 Peripheral vascular disease, unspecified; I87.8 Other specified disorders of veins; I25.10 Atherosclerotic heart disease of native coronary artery without angina pectoris; I48.91 Unspecified atrial fibrillation; G47.33 Obstructive sleep apnea (adult) (pediatric); Z95.1 Presence of aortocoronary bypass graft; Z96.651 Presence of right artificial knee joint; Z96.643 Presence of artificial hip joint, bilateral; Z79.899 Other long term (current) drug therapy; X58.XXXD Exposure to other specified factors, subsequent encounter ==

== ENCOUNTER → 2024-06-05 | Outpatient (CLI) | payer MEDICARE | END | disposition home or self-care (01) | LOC: WOUNDCARE 01:56 | PROVIDERS: ATTEND Nurse Practitioner Family | DX: I83.018 Varicose veins of right lower extremity with ulcer other part of lower leg (principal); L97.812 Non-pressure chronic ulcer of other part of right lower leg with fat layer exposed; I83.892 Varicose veins of left lower extremity with other complications; S81.812D Laceration without foreign body, left lower leg, subsequent encounter; I13.0 Hypertensive heart and chronic kidney disease with heart failure and stage 1 through stage 4 chronic kidney disease, or unspecified chronic kidney disease; N18.9 Chronic kidney disease, unspecified; I50.9 Heart failure, unspecified; I73.9 Peripheral vascular disease, unspecified; I87.8 Other specified disorders of veins; I25.10 Atherosclerotic heart disease of native coronary artery without angina pectoris; I48.91 Unspecified atrial fibrillation; G47.33 Obstructive sleep apnea (adult) (pediatric); Z95.1 Presence of aortocoronary bypass graft; Z96.651 Presence of right artificial knee joint; Z96.643 Presence of artificial hip joint, bilateral; Z79.899 Other long term (current) drug therapy; X58.XXXD Exposure to other specified factors, subsequent encounter ==

== ENCOUNTER → 2024-07-17 | Outpatient (CLI) | payer MEDICARE | END | disposition home or self-care (01) | LOC: WOUNDCARE 07-07 02:17 | PROVIDERS: ATTEND Nurse Practitioner Family | DX: I83.028 Varicose veins of left lower extremity with ulcer other part of lower leg (principal); L97.822 Non-pressure chronic ulcer of other part of left lower leg with fat layer exposed; I83.018 Varicose veins of right lower extremity with ulcer other part of lower leg; L97.812 Non-pressure chronic ulcer of other part of right lower leg with fat layer exposed; S81.812D Laceration without foreign body, left lower leg, subsequent encounter; I13.0 Hypertensive heart and chronic kidney disease with heart failure and stage 1 through stage 4 chronic kidney disease, or unspecified chronic kidney disease; N18.9 Chronic kidney disease, unspecified; I50.9 Heart failure, unspecified; I87.8 Other specified disorders of veins; I73.9 Peripheral vascular disease, unspecified; I25.10 Atherosclerotic heart disease of native coronary artery without angina pectoris; I48.91 Unspecified atrial fibrillation; G47.33 Obstructive sleep apnea (adult) (pediatric); Z95.1 Presence of aortocoronary bypass graft; Z96.651 Presence of right artificial knee joint; Z96.643 Presence of artificial hip joint, bilateral; Z79.899 Other long term (current) drug therapy; X58.XXXD Exposure to other specified factors, subsequent encounter ==

== ENCOUNTER → 2024-07-24 | Outpatient (CLI) | payer MEDICARE | LOC: WOUNDCARE 02:10 | PROVIDERS: ATTEND Nurse Practitioner Family | DX: I83.028 Varicose veins of left lower extremity with ulcer other part of lower leg (principal); L97.822 Non-pressure chronic ulcer of other part of left lower leg with fat layer exposed; I83.018 Varicose veins of right lower extremity with ulcer other part of lower leg; L97.812 Non-pressure chronic ulcer of other part of right lower leg with fat layer exposed; S81.812D Laceration without foreign body, left lower leg, subsequent encounter; I13.0 Hypertensive heart and chronic kidney disease with heart failure and stage 1 through stage 4 chronic kidney disease, or unspecified chronic kidney disease; N18.9 Chronic kidney disease, unspecified; I50.9 Heart failure, unspecified; I87.8 Other specified disorders of veins; I73.9 Peripheral vascular disease, unspecified; I25.10 Atherosclerotic heart disease of native coronary artery without angina pectoris; I48.91 Unspecified atrial fibrillation; G47.33 Obstructive sleep apnea (adult) (pediatric); Z95.1 Presence of aortocoronary bypass graft; Z96.651 Presence of right artificial knee joint; Z96.643 Presence of artificial hip joint, bilateral; Z79.899 Other long term (current) drug therapy; X58.XXXD Exposure to other specified factors, subsequent encounter ==

== ENCOUNTER → 2024-07-31 | Outpatient (CLI) | payer MEDICARE | LOC: WOUNDCARE 01:22 | PROVIDERS: ATTEND Nurse Practitioner Family | DX: I83.893 Varicose veins of bilateral lower extremities with other complications (principal); L97.822 Non-pressure chronic ulcer of other part of left lower leg with fat layer exposed; L97.812 Non-pressure chronic ulcer of other part of right lower leg with fat layer exposed; S81.812D Laceration without foreign body, left lower leg, subsequent encounter; I87.2 Venous insufficiency (chronic) (peripheral); I73.9 Peripheral vascular disease, unspecified; I13.0 Hypertensive heart and chronic kidney disease with heart failure and stage 1 through stage 4 chronic kidney disease, or unspecified chronic kidney disease; E11.22 Type 2 diabetes mellitus with diabetic chronic kidney disease; N18.9 Chronic kidney disease, unspecified; I50.9 Heart failure, unspecified; I48.91 Unspecified atrial fibrillation; I25.10 Atherosclerotic heart disease of native coronary artery without angina pectoris; Z95.1 Presence of aortocoronary bypass graft; Z98.890 Other specified postprocedural states; Z79.899 Other long term (current) drug therapy; X58.XXXD Exposure to other specified factors, subsequent encounter ==